=== PATIENT | female | born 1950 | race American Indian/Alaskan Native ===

== ENCOUNTER 2022-04-20 08:33 | Outpatient (CLI) | payer MEDICARE, OTHER ==
--- NOTE | 2022-04-20 11:14 | Magnetic Resonance Report ---
MRI ABDOMEN WITHOUT AND WITH CONTRAST INDICATION / CLINICAL INFORMATION: C64.2 LEFT NEOPLASM OF KIDNEY, ABD PAIN. TECHNIQUE: Multiplanar, multisequence series were obtained through the abdomen. COMPARISON: None available. FINDINGS: LOWER CHEST: No significant abnormality. LIVER: There are several T2 hyperintense/T1 hypointense nonenhancing lesions scattered throughout the left hepatic lobe consistent with hepatic cysts. No concerning lesion. GALLBLADDER: No significant abnormality. BILE DUCTS: No significant abnormality. PANCREAS: No significant abnormality. SPLEEN: No significant abnormality. ADRENALS: No significant abnormality. RIGHT KIDNEY / URETER: Multiple T2 hyperintense/T1 hypointense lesions which do not demonstrate signi ficant enhancement. LEFT KIDNEY / URETER: Multiple T2 hyperintense/T1 hypointense lesions which do not demonstrate signif icant enhancement. STOMACH / VISUALIZED BOWEL: No significant abnormality. PERITONEUM: No free fluid. No free air. No fluid collection. LYMPH NODES: No significant adenopathy. AORTA / ARTERIES: No significant abnormality. IVC / VEINS: No significant abnormality. ADDITIONAL FINDINGS: None. SKELETAL SYSTEM: No significant abnormality. IMPRESSION: 1. No concerning renal lesion. There are multiple renal cysts scattered throughout both kidneys. 2. Left hepatic lobe hepatic cyst. Signer Name: Vadim Cueva DO Signed: 04/20/2022 11:10 AM Workstation Name: [id number]
== END 2022-04-20 08:34 | disposition home or self-care (01) ==
LOC: MRI 08:33
PROVIDERS: ATTEND Internal Medicine Nephrology
DX: C64.2 Malignant neoplasm of left kidney, except renal pelvis (principal); K76.89 Other specified diseases of liver
CPT/HCPCS: 74183; A9575